=== PATIENT | male | born 1945 | race Caucasian/White ===

== ENCOUNTER 2018-03-22 09:00 | Day surgery (SDC) | payer MEDICARE ==
[~2018-03-22 09:00] MED LIST: Acetaminophen TAB* 325 MG PO PRN; Buffered Lidocaine 0.9% SYRIN* 5 ML/SYR SYRINGE INTRADERM ONE; Cyclopentolate 1% OPTH.SOL* 2 ML BTL ONE; Ketorolac 0.5% OPHTH (NF) 0.5 % 5 ML BTL ONE; Lidocaine 1%* 5 ML VIAL ONE; Lidocaine 2% EPI 1:200000 MPF*10-20 ML VIAL ONE; Midazolam* 1 MG/ML 2 ML VIAL (2 MG) ONE; Neomycin/Polymy/Dex OPTH.SUSP* MAXITROL 0.1% 5 ML ONE; Povidone Iodine 5% OPTH* 30 ML BTL ONE; Proparacaine 0.5% OPHTH.SOL* 15 ML BTL ONE; acetaZOLAMIDE TAB* 250 MG ONE; fentaNYL* 50 MCG/ML 2 ML VIAL (100 MCG VIAL) ONE
[2018-03-22 12:00] VITALS: BP 105/74
--- NOTE | 2018-03-22 19:52 | OP ---
DATE OF OPERATION: 03/22/18 - [facility] DATE OF : 47 SURGEON: Miah Aquino M.D. PREOPERATIVE DIAGNOSIS: Cataract, left eye. POSTOPERATIVE DIAGNOSIS: Cataract, left eye. OPERATIVE PROCEDURE: Extracapsular cataract extraction with intraocular lens implant left eye. DESCRIPTION OF PROCEDURE: The patient was brought to the operating room after being given 1/2% Alcaine with epinephrine drops in the preoperative area. The eye was prepped and draped in the usual sterile fashion. Sterile drape and eyelid speculum were placed. Again, topical 1/2% Alcaine with epinephrine was given. A paracentesis incision was made at the 3 o'clock position with the No. 75 blade. Clear cornea incision 2.2 x 2.2-mm was created at the 6 o'clock position starting at the anterior limbus using the 2.2-mm keratome. The anterior chamber was irrigated with 0.4 mL of 1% non-preservative intracameral lidocaine and filled with DisCoVisc. A capsulorrhexis was completed using the cystotome and the Utrata forceps. Hydrodissection was performed with balanced salt solution. The lens nucleus was removed with the Phacoemulsification handpiece without incident. Cortex was removed with the irrigation-aspiration handpiece. The capsular bag was re-inflated using DisCoVisc and an [id number] implant was inserted with the shooter and oriented to the 176 degree meridian. The irrigation-aspiration handpiece was used to remove all residual DisCoVisc. The eye was refilled with balanced salt solution and the wound checked and found to be watertight. Topical Maxitrol drops were given. [id number]/[facility]PS #: [id number] [facility]
== END 2018-03-22 12:41 | disposition home or self-care (01) ==
LOC: OREAST 09:00
PROVIDERS: ATTEND Specialist
DX: H25.12 Age-related nuclear cataract, left eye (principal); J45.909 Unspecified asthma, uncomplicated
CPT/HCPCS: A9270-GY; J2250; J3010; V2787

== ENCOUNTER 2018-03-29 09:24 | Day surgery (SDC) | payer MEDICARE ==
[~2018-03-29 09:24] MED LIST changes: -Buffered Lidocaine 0.9% SYRIN* 5 ML/SYR SYRINGE INTRADERM ONE; +Buffered Lidocaine 1% SYRIN* 1 ML/SYRINGE INTRADERM ONE; -Cyclopentolate 1% OPTH.SOL* 2 ML BTL ONE; -Ketorolac 0.5% OPHTH (NF) 0.5 % 5 ML BTL ONE; -Lidocaine 1%* 5 ML VIAL ONE; -Lidocaine 2% EPI 1:200000 MPF*10-20 ML VIAL ONE; -Midazolam* 1 MG/ML 2 ML VIAL (2 MG) ONE; -Neomycin/Polymy/Dex OPTH.SUSP* MAXITROL 0.1% 5 ML ONE; -Povidone Iodine 5% OPTH* 30 ML BTL ONE; -Proparacaine 0.5% OPHTH.SOL* 15 ML BTL ONE; -acetaZOLAMIDE TAB* 250 MG ONE; -fentaNYL* 50 MCG/ML 2 ML VIAL (100 MCG VIAL) ONE
[2018-03-29] MEDS ORDERED: Midazolam* 1 MG/ML 5 ML VIAL (5 MG) ONE (10:44)
[2018-03-29] MEDS ORDERED: fentaNYL* 50 MCG/ML 2 ML VIAL (100 MCG VIAL) ONE (11:09)
[2018-03-29 11:52] VITALS: BP 107/54
[2018-03-29] MEDS ORDERED: Neomycin/Polymy/Dex OPTH.SUSP* MAXITROL 0.1% 5 ML ONE (15:43)
[2018-03-29] MEDS ORDERED: Ketorolac 0.5% OPHTH (NF) 0.5 % 5 ML BTL ONE (15:43)
[2018-03-29] MEDS ORDERED: Proparacaine 0.5% OPHTH.SOL* 15 ML BTL ONE (15:43)
[2018-03-29] MEDS ORDERED: Lidocaine 1%* 5 ML VIAL ONE (15:43)
[2018-03-29] MEDS ORDERED: Cyclopentolate 1% OPTH.SOL* 2 ML BTL ONE (15:43)
[2018-03-29] MEDS ORDERED: Povidone Iodine 5% OPTH* 30 ML BTL ONE (15:43)
[2018-03-29] MEDS ORDERED: Lidocaine 2% EPI 1:200000 MPF*10-20 ML VIAL ONE (15:43)
[2018-03-29] MEDS ORDERED: acetaZOLAMIDE TAB* 250 MG ONE (15:43)
[2018-03-29] MEDS ORDERED: Phenylephrine 2.5% OPTH.SOL* 2 ML BTL ONE (15:43)
--- NOTE | 2018-03-29 16:04 | OP ---
OPERATIVE NOTE: DATE OF OPERATION: 03/29/18 DATE OF : 47 SURGEON: Miah Aquino M.D. PREOPERATIVE DIAGNOSIS: Cataract, right eye. POSTOPERATIVE DIAGNOSIS: Cataract, right eye. OPERATIVE PROCEDURE: Extracapsular cataract extraction with intraocular lens implant, right eye. PROCEDURE: The patient was brought to the operating room after being given 1/2% Alcaine with epineph rine drops in the preoperative area. The eye was prepped and draped in the usual sterile fashion. S terile drape and eyelid speculum were placed. Again, topical 1/2% Alcaine with epinephrine was given . A paracentesis incision was made at the 9 o'clock position with the No.75 blade. Clear cornea inc ision 2.2 x 2.2-mm was created at the 12 o'clock position starting at the anterior limbus using the 2 .2-mm keratome. The anterior chamber was irrigated with 0.4 mL of 1% non-preservative intracameral l idocaine and filled with DisCoVisc. A capsulorrhexis was completed using the cystotome and the Utrat a forceps. Hydrodissection was performed with balanced salt solution. The lens nucleus was removed w ith the Phacoemulsification handpiece without incident. Cortex was removed with the irrigation-aspir ation handpiece. The capsular bag was re-inflated using DisCoVisc and an [id number] implant was inser everette with the shooter, oriented to the 19 degree meridian with the horizontal reference watson being ma de in the preoperative area with the patient in seated position. This is all confirmed with ORA. e irrigation-aspiration handpiece was used to remove all residual DisCoVisc. The eye was refilled wi balanced salt solution and the wound checked and found to be watertight. Topical Maxitrol drops w ere given. [id number]/[facility] #: [id number]
== END 2018-03-29 11:55 | disposition home or self-care (01) ==
LOC: OREAST 09:24
PROVIDERS: ATTEND Specialist
DX: H25.11 Age-related nuclear cataract, right eye (principal); J45.909 Unspecified asthma, uncomplicated
CPT/HCPCS: A9270-GY; J2250; J3010; V2787

== ENCOUNTER 2019-05-12 07:38 | Emergency (ER) | payer MEDICARE ==
--- NOTE | 2019-05-12 08:16 | ED ---
Neurological HPI - HPI Summary HPI Summary: This patient is a 73 year old M presenting to [facility] with a chief complaint of brief LOC occurring on 05/11/19. Pt reports yesterday in middle of his workout he became disoriented. One of the other people noticed this and sat pt down on the bench. Then the director of the gym came to sit with him. The director later reported to the pt that he said he did not know where he was and what he was doing. Soon after pt became fully aware and went on with his workout. Pt then felt fine all day, but he called his doctors office and they told him to go to ED. Previously, 3 years ago pt developed tinnitus and slight loss of hearing in both ear but more prevalent in left. Pt sometimes develops OWUSU, and slight loss of balance. Last [place], pt had a very bad cold and was congested for a month after getting better. Patient reports general loss of energy. Patient denies numbness and tingling. Pt denies similar symptoms previously. Pt has PMHx of asthma. Pt visits Dr. Conley, and has had stress tests. Pt does not smoke or drink. Medications reviewed. Allergies noted. - History of Current Complaint Chief Complaint: EDSyncope Stated Complaint: BLACKED OUT PER PT Time Seen by Provider: 05/12/19 07:52 Hx Obtained From: Patient Onset/Duration: Sudden Onset, Started days ago, Resolved Timing: Sudden Onset Current Severity: None Pain Intensity: 0 Pain Scale Used: 0-10 Numeric Character: Confusion Aggravating: Exertion Alleviating: Spontanious Resolution Associated Signs and Symptoms: Positive: Tinnitus, Unsteady Gait, Headache - Additional Pertinent History Primary Care Physician: [id number] - Allergy/Home Medications Allergies/Adverse Reactions: Allergies Allergy/AdvReac Type Severity Reaction Status Date / Time cat dander Allergy Wheezing Verified 05/12/19 07:50 feathers Allergy Wheezing Verified 05/12/19 07:50 dust mites Allergy Wheezing Uncoded 05/12/19 07:50 Home Medications: Home Medications Fluticasone HFA 110 mcg(NF) [Flovent HFA 110 mcg(NF)] 1 puff INH BEDTIME [History Confirmed 05/12/19] Hernandez-3/Dha/Epa/Fish Oil [Fish Oil] 1,000 mg PO QAM 10/23/14 [History Confirmed 05/12/19] Cyanocobalamin TAB* [Vitamin B12 TAB*] 1,000 mcg PO DAILY 05/12/19 [History Confirmed 05/12/19] Pseudoephedrine TAB* [Sudafed TAB*] 30 mg PO DAILY PRN 05/12/19 [History Confirmed 05/12/19] PMH/Surg Hx/FS Hx/Imm Hx Cardiovascular History: Reports: Other Cardiovascular Problems/Disorders - 1 abnormal stress test in 2014 and is now seen by dr. conley yearly Respiratory History: Reports: Hx Asthma - RESCUE INHALER PRESCRIBED, BUT NEVER NEEDED History: Reports: Other Problems/Disorders - pt states occasional UTI Musculoskeletal History: Reports: Hx Arthritis - LEFT HIP, Other Musculoskeletal History - pt had bilateral hip replacements Sensory History: Reports: Hx Cataracts - bilateral eyes, Hx Contacts or Glasses - GLASSES Denies: Hx Hearing Aid Opthamlomology History: Reports: Hx Cataracts - bilateral eyes, Hx Contacts or Glasses - GLASSES Neurological History: Reports: Hx Migraine - EPISODIC- R/T STRESS - Surgical History Surgery Procedure, Year, and Place: bilateral hip replacement 10/2014-left [facility] [place] dr mosley, right 02/27 SOS Hx Anesthesia Reactions: No Infectious Disease History: No Infectious Disease History: Denies: Traveled Outside the [place] in Last 30 Days - Family History Known Family History: Positive: Other - cataract - Social History Alcohol Use: None Substance Use Type: Reports: None Smoking Status (MU): Never Smoked Tobacco Review of Systems Positive: Other - General Loss of Energy Neurological/Mental Status: Other - Loss of Consciousness Negative: Numbness All Other Systems Reviewed And Are Negative: Yes Physical Exam - Summary Physical Exam Summary: Constitutional: Well-developed, Well-nourished, Alert. (-) Distressed Skin: Warm, Dry HENT: Normocephalic; Atraumatic Eyes: Conjunctiva normal Neck: Musculoskeletal ROM normal neck. (-) JVD, (-) Stridor, (-) Tracheal deviation Cardio: Rhythm regular, rate normal, Heart sounds normal; Intact distal pulses; Radial pulses are 2+ and symmetric. (-) Murmur Pulmonary/Chest wall: Effort normal. (-) Respiratory distress, (-) Wheezes, (-) Rales Abd: Soft, (-) tenderness, (-) Distension, (-) Guarding, (-) Rebound Musculoskeletal: (-) Edema Lymph: (-) Cervical adenopathy Neuro: Alert, Oriented x3, Strength normal, Cranial nerves II-XII are grossly intact. (-) Dysmetria, (-) Nystagmus, (-) Ataxia by finger to nose testing, (-) Sensory deficit. Nml gait Psych: Mood and affect Normal Triage Information Reviewed: Yes Vital Signs On Initial Exam: Initial Vitals Temp Pulse Resp BP Pulse Ox 98.8 F 82 19 149/89 96 05/12/19 07:42 05/12/19 07:42 05/12/19 07:42 05/12/19 07:42 05/12/19 07:42 Vital Signs Reviewed: Yes - Chris Coma Scale Best Eye Response: 4 - Spontaneous Best Motor Response: 6 - Obeys Commands Best Verbal Response: 5 - Oriented Coma Scale Total: 15 Procedures - Sedation Patient Received Moderate/Deep Sedation with Procedure: No Diagnostics - Vital Signs Vital Signs Temp Pulse Resp BP Pulse Ox 05/12/19 07:42 98.8 F 82 19 149/89 96 - Laboratory Result Diagrams: 05/12/19 08:22 05/12/19 08:22 Lab Statement: Any lab studies that have been ordered have been reviewed, and results considered in the medical decision making process. - Radiology 0846 Radiology Interpretation Completed By: ED Physician Summary of Radiographic Findings: EKG at 0846 reveals normal sinus rhythm with rate of 67 BPM Benign early repol. This EKG was reviewed and interpreted by ED physician. - CT Head CTA CT Interpretation Completed By: Radiologist Summary of CT Findings: Head CTA reveals, per radiologist IMPRESSION: 1. According to NASCET criteria there is no significant carotid stenosis bilaterally. There is no significant atherosclerotic plaque seen in either carotid bulb. 2. Arteries of the head and neck are adequately patent without CT apparent acute. abnormality. 3. 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 Please correlate to any signs or symptoms of left upper extremity. venous hypertension including swelling or pain. Potentially during moments of physical. exertion (for example, the gym) the patient is experiencing increase intracranial venous pressure contributing to his symptoms? ED physician has reviewed this radiology report. - EKG 0846 Cardiac Rate: NL EKG Rhythm: Sinus Rhythm Summary of EKG Findings: EKG at 0846 reveals normal sinus rhythm with rate of 67 BPM Benign early repol. This EKG was reviewed and interpreted by ED physician. NIH Scale - NIH Scale Level of Consciousness: Alert/Keenly Responsive Ask Patient the Month and His/Her Age: Both Correct Ask Pt to Open/Close Eyes and Weight Clerk/Release Non-Paretic Hand: Both Correctly Best Gaze (Only Horizontal Eye Movement): Normal Visual Field Testing: No Visual Loss Facial Paresis-Pt to Smile & Close Eyes or Grimace Symmetry: Normal/Symmetrical Motor Function - Right Arm: No Drift-Holds 10 Seconds Motor Function - Left Arm: No Drift-Holds 10 Seconds Motor Function - Right Leg: No Drift-Holds 10 Seconds Motor Function - Left Leg: No Drift-Holds 10 Seconds Limb Ataxia-Must be out of Proportion to Weakness Present: Absent Sensory (Use Pinprick to Test Arms/Legs/Trunk/Face): Normal Best Language (Describe Picture, Name Items): No Aphasia Dysarthria (Read Several Words): Normal Extinction and Inattention: No Abnormality Total Score: 0 Re-Evaluation - Re-Evaluation First Eval Re-Evaluation Time: 10:47 Comment: Discussed results and plan of care with pt. Course/Dx - Course Course Of Treatment: Patient is here with an episode of exertional disorientation. Patient cannot recall the events of this episode. Patient has a normal neurologic exam here with an NIH stroke scale of 0. Patient is back to his baseline. Patient had a CTA of his head/neck which was negative for any acute changes. 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 Patient in EKG showed evidence of arrhythmia. Patient had negative blood work. Neurology was called and they do not think this represents a TIA. Patient follow-up with his primary care doctor for further evaluation and possible Holter monitor. - Diagnoses Provider Diagnoses: Disorientation, Adverse effect of exertion - Physician Notifications Discussed Care Of Patient With: Parish Pelaez Time Discussed With Above Provider: 10:41 Instructed by Provider To: Other - 10:[address] Pelaez, does not sound like TIA, follow up with PCP, possible holter monitor Discharge ED - Sign-Out/Discharge Documenting (check all that apply): Patient Departure - Discharge - Discharge Plan Condition: Stable Disposition: HOME Referrals: Juana Gimenez MD [Primary Care Provider] - 3 Days Additional Instructions: Follow up with primary care provider in 1-3 days for possible holter moniter, or referral to neurology. Return to ED for chest pain, one sided weakness, change in vision, or any other concerning symptoms. - Billing Disposition and Condition Condition: STABLE Disposition: Home - Attestation Statements Document Initiated by Ghulam: Yes Documenting Scribe: Kalie Grijalva Provider For Whom Ghulam is Documenting (Include Credential): Conrad Amaro MD Scribe Attestation: Kalie Bach, scribed for Conrad Amaro MD on 05/12/19 at 1227. Scribe Documentation Reviewed: Yes Provider Attestation: The documentation as recorded by the Kalie hemphill accurately reflects the service I personally performed and the decisions made by , Conrad Amaro MD Status of Scribe Document: Viewed
[2019-05-12 08:31] LABS: ABS Eosinophils 0.1 10^3/ul (0-0.6); ABS Lymphocytes 0.9 10^3/ul (1.0-4.8); ABS Monocytes 0.4 10^3/ul (0-0.8); ABS Neutrophils 2.4 10^3/ul (1.5-7.7); Eosinophil % 2.2 %; Hematocrit 42 % (42-52); Lymphocyte % 22.7 %; Mean Corpuscular HGB Conc 34 g/dL (31-36); Mean Corpuscular Hemoglobin 32 pg (27-31); Mean Corpuscular Volume 94 fL (80-94); Mean Platelet Volume 8.8 fL (7.4-10.4); Platelet Count 168 10^3/uL (150-450); Red Blood Count 4.43 10^6 /uL (4.18-5.48); Red Cell Distribution Width 15 % (10-15); White Blood Count 3.9 10^3/uL (3.5-10.8)
[2019-05-12 09:05] LABS: Albumin/Globulin Ratio 1.7 (1-3); BUN/Creatinine Ratio 14.2 (8-20); Calcium 9.4 mg/dL (8.6-10.3); EGFR African American 83.1 (>60); EGFR Non-African American 68.7 (>60); Globulin 2.3 g/dL (2-4); Potassium 4.5 mmol/L (3.5-5.0); Total Protein 6.3 g/dL (6.4-8.9)
--- OUTSIDE RECORDS SUMMARY | 2019-05-12 09:07 | XMS REPORT | Continuity of Care Document ---
:1945 External Reference #:[id number] Author Name Juana Gimenez MD (transmitted by agent of provider Albina Bello) Address [address] , [place] [address] Care Team Providers Name Role Phone Jordin Gastelum MD - Internal Care Team Information Taper/Finisher Medicine Anson Chavis MD - Urology Care Team Information Taper/Finisher [phone] Svitlana Pulido NP - Adult Health Care Team Information Taper/Finisher [phone] Ortega Conley MD - Cardiovascular Care Team Information Taper/Finisher Disease Juana Gimenez MD - Internal Medicine Care Team Information Taper/Finisher Problems Active Problems Provider Date Intrinsic asthma without status Jordin Gastelum M.D.,FACP Onset: 2007 asthmaticus Migraine with typical aura Jordin Gastelum M.D.,FACP Onset: 05/31/2007 Localized, primary osteoarthritis of Jordin Gastelum M.D.,FACP Onset: the pelvic region and thigh Note: left hip History of calculus of kidney Jordin Gastelum M.D.,FACP Onset: 03/10/2016 Spermatocele Jordin Gastelum M.D.,FACP Onset: 11/02/2016 Note: LT, large Paroxysmal ventricular tachycardia Jordin Gastelum M.D.,FACP Onset: 2016 Note: outflow tract, negative cath, cardiac MRI Benign prostatic hypertrophy without Jordin Gastelum M.D.,FACP Onset: outflow obstruction Essential tremor Jordin Gastelum M.D.,FACP Onset: 02/09/2018 Note: RT thumb Social History Type Date Description Comments Sex Unknown Tobacco Use Start: Unknown Never Smoked Cigarettes ETOH Use 02/09/2018 Rarely consumes beer Recreational Drug Use Denies Drug Use Tobacco Use Start: Unknown Patient has never smoked Smoking Status Reviewed: 04/18/19 Patient has never smoked Exercise Type/Frequency Exercises regularly Allergies, Adverse Reactions, Alerts Active Allergies Reaction Severity Comments Date Cat Dander 12/30/2011 Feathers 12/30/2011 Dust 12/30/2011 Inactive Allergies NKDA 01/05/2011 Medications Active Medications SIG Qnty Indications Ordering Provider Date Shingrix inject per 2units Z23 Juana Gimenez MD 02/20/2019 50mcg/0.5ML protocol Suspension Rec Vitamin B12 1 by mouth every 90tabs Jordin Ahuja 02/25/2018 100mcg day Naomi Gastelum,FACP Tablets Amoxicillin 4 tablets 1 hour 8caps Emanuel Martin, 05/02/2015 500mg before dental work Naomi Capsules Proair HFA 2 puffs by mouth 1units 493.10 Juana Gimenez MD 10/09/2014 every 4 hours as 108(90Base) mcg/Act needed Aerosol Flovent HFA inhale one puff by 36gm Jordin Ahuja 03/15/2007 mouth every Naomi Gastelum,FACP 110mcg/Act Aerosol evening Fish Oil daily Unknown Excedrin Migraine 1 tablet by mouth Unknown three times a day, [phone] Tablets as needed persitent headache Immunizations CPT Code Status Date Vaccine Lot # [id number] Given 02/09/2018 Influenza Virus Vaccine, Quadrivalent, Split, [id number] Preservative Free 73773 Given 02/14/2017 Influenza Virus Vaccine, Quadrivalent, Split, Preservative Free 81083 Given 02/03/2017 Influenza Virus Vaccine, Quadrivalent, Split, Preservative Free 46327 Given 10/28/2015 Pneumonia Vaccine [id number] Given 10/09/2014 Pneumococcal Conjugate Vaccine 13 Valent For [id number] Intramuscular Use Q2037 Given 12/30/2011 Fluvirin Im 3Yrs And Older [id number] 59097 Given 12/30/2011 Tdap - Tetanus/Diptheria/Acellular Pertussis [id number] 67012 Given 03/15/2007 Influenza Virus 3Yrs & Over [id number] Vital Signs Date Vital Result Comment 04/18/2019 8:42am Height 67 inches 5'7" Weight 137.00 lb Heart Rate 58 /min BP Systolic Sitting 120 mmHg BP Diastolic Sitting 68 mmHg Body Temperature 97.4 F O2 % BldC Oximetry 96 % BMI (Body Mass Index) 21.5 kg/m2 02/20/2019 8:47am Height 67 inches 5'7" Weight 135.00 lb Heart Rate 66 /min BP Systolic Sitting 131 mmHg BP Diastolic Sitting 69 mmHg Body Temperature 97.3 F O2 % BldC Oximetry 99 % BMI (Body Mass Index) 21.1 kg/m2 Results Test Acquired Date Facility Test Result H/L Range Note CBC Auto 02/20/2019 [facility] White Blood 4.9 10^3/uL Normal 3.5-10.[address] Count [place], [place] [id number] [phone] Red Blood Count 4.44 10^6/uL Normal 4.18-5.48 Hemoglobin 14.0 g/dL Normal 14.0-18.0 Hematocrit 42 % Normal 42-52 Mean Corpuscular Volume 94 fL Normal 80-94 Mean Corpuscular Hemoglobin 32 pg High 27-31 Mean Corpuscular HGB Conc 33 g/dL Normal 31-36 Red Cell Distribution Width 14 % Normal 10-15 Platelet Count 193 10^3/uL Normal 150-450 Mean Platelet Volume 9.4 fL Normal 7.4-10.4 Abs Neutrophils 3.2 10^3/uL Normal 1.5-7.7 Abs Lymphocytes 1.0 10^3/uL Normal 1.0-4.8 Abs Monocytes 0.6 10^3/uL Normal 0-0.8 Abs Eosinophils 0.2 10^3/uL Normal 0-0.6 Abs Basophils 0.1 10^3/uL Normal 0-0.2 Abs Nucleated RBC 0.0 10^3/uL Granulocyte % 64.3 % Lymphocyte % 19.9 % Monocyte % 11.5 % Eosinophil % 3.1 % Basophil % 1.2 % Nucleated Red Blood Cells % 0.0 Laboratory test 02/20/2019 [facility] C Reactive < 1.00 Normal <8.[address] Protein mg/[place] [address] [phone] TSH (Thyroid Stim Horm) 1.61 mcIU/mL Normal 0.34-5.60 Vitamin B12 02/20/2019 [facility] Vitamin B12 376 pg/mL Normal 180-914 [address] [place] [address] [phone] Folic Acid (Folate) 8.13 ng/mL >3.99 Lipid Profile 02/15/2019 [facility] Triglycerides 64 mg/dL 2 (Trig/Chol/HDL) [address] [place] [address] [phone] Cholesterol 179 mg/dL 3 HDL Cholesterol 69.1 mg/dL 4 LDL Cholesterol 97 mg/dL 5 Comp Metabolic 02/15/2019 [facility] Sodium 142 mmol/L Normal 135-[address] [place] [address] [phone] Potassium 4.2 mmol/L Normal 3.5-5.0 Chloride 108 mmol/L Normal 101-111 Co2 Carbon Dioxide 30 mmol/L Normal 22-32 Anion Gap 4 mmol/L Normal 2-11 Glucose 96 mg/dL Normal 70-100 Blood Urea Nitrogen 18 mg/dL Normal 6-24 Creatinine 1.02 mg/dL Normal 0.67-1.17 BUN/Creatinine Ratio 17.6 Normal 8-20 Calcium 9.1 mg/dL Normal 8.6-10.3 Total Protein 5.9 g/dL Low 6.4-8.9 Albumin 4.1 g/dL Normal 3.2-5.2 Globulin 1.8 g/dL Low 2-4 Albumin/Globulin Ratio 2.3 Normal 1-3 Total Bilirubin 1.10 mg/dL High 0.2-1.0 Alkaline Phosphatase 83 U/L Normal 34-104 Alt 15 U/L Normal 7-52 Ast 20 U/L Normal 13-39 Egfr Non- 71.8 >60 Egfr 86.9 >60 6 Laboratory test 10/30/2018 [facility] PSA Diagnostic 1.596 ng/ mL 0-4.0 [address] [place] [address] [phone] 1 Normal Range 180 to 914 Indeterminate Range 145 to 180 Deficient Range <145 2 Desirable: <150 Borderline High: 150-199 High: 200-499 Very High: >500 3 Desirable: <200 Borderline High: 200-239 High: >239 4 Low: <40 Desirable: 40-60 High: >60 5 Desirable: <100 Near Optimal: 100-129 Borderline High: 130-159 High: 160-189 Very High: >189 6 Because ethnic data is not always readily available, this report includes an eGFR for both -Americans and non- Americans. The National Kidney Disease Education Program (NKDEP) does not endorse the use of the MDRD equation for patients that are not between the ages of 18 and 70, are , have extremes of body size, muscle mass, or nutritional status, or are non- or non-. According to the National Kidney Foundation, irrespective of diagnosis, the stage of the disease is based on the level of kidney function: Stage Description GFR(mL/min/1.73 m(2)) 1 Kidney damage with normal or decreased GFR 90 2 Kidney damage with mild decrease in GFR 60-89 3 Moderate decrease in GFR 30-59 4 Severe decrease in GFR 15-29 5 Kidney failure <15 (or dialysis) 7 Serum levels of PSA measured using the [employer] [place] DXI Hybritech immunoassay should not be interpreted as absolute evidence of the presence or absence of disease. The PSA value should be used in conjunction with other pertinent clinical diagnostic procedures. The values obtained with different assay methods or kits cannot be used interchangeably. Procedures Date Code Description Status 03/23/2019 25574 ECHO Stress Test Incl Perf Contiuous ekg Monitoring Completed W/Phys Superv 02/07/2019 23822 EKG Tracing & Interpretation Completed 03/03/2012 88083228 Colonoscopy Completed 03/14/2000 28526086 Colonoscopy Completed Medical Devices Description No Information Available Encounters Type Date Location Provider Dx Diagnosis Office Visit 02/07/2019 [facility] Ortega Ahuja I47.2 Ventricular 8:45a Of Leigh Ann Conley M.D. tachycardia R42 Dizziness and giddiness Office Visit 12/12/2018 8:30a [facility] M25.562 Pain in at [facility] Kevin MD left knee M17.12 Unilateral primary osteoarthritis, left knee Office Visit 10/31/2018 8:00a [facility] M25.562 Pain in at Macrina Kevin MD left knee M17.12 Unilateral primary osteoarthritis, left knee Assessments Date Code Description Provider 04/18/2019 H93.13 Tinnitus, bilateral Juana Gimenez MD 03/23/2019 I47.2 Ventricular tachycardia Ortega Conley M.D. 02/20/2019 Z00.00 Encounter for general adult medical Juana Gimenez MD examination without abnormal findings 02/20/2019 R63.4 Abnormal weight loss Juana Gimenez MD 02/20/2019 Z23 Encounter for immunization Juana Gimenez MD 02/20/2019 R25.1 Tremor, unspecified Juana Gimenez MD 02/20/2019 F34.1 Dysthymic disorder Juana Gimenez MD 02/07/2019 I47.2 Ventricular tachycardia Ortega Conley M.D. 02/07/2019 R42 Dizziness and giddiness Ortega Conley M.D. 12/12/2018 M25.562 Pain in left knee Daimen Kevin MD 12/12/2018 M17.12 Unilateral primary osteoarthritis, left Damien Kevin MD knee 10/31/2018 M25.562 Pain in left knee Damien Kevin MD 10/31/2018 M17.12 Unilateral primary osteoarthritis, left Damien Kevin MD knee Plan of Treatment Future Appointment(s):05/22/2019 8:20 am - [facility] Juana Gimenez MDH93.13 Tinnitus, bilateralReferral: Barry Moreno MD, Otolaryngology Functional Status Description No Information Available Mental Status Description No Information Available Referrals Refer to Dr Reason for Referral Status Appt Date Barry Moreno MD Sudden on set bilateral tinnitus about a week Created ago No cerumen bilaterally [address] [place] [address] [phone]
[2019-05-12] MEDS ORDERED: Iohexol 350* (CONTRAST) 500 ML MDV IV ONE (09:14)
[2019-05-12 11:06] VITALS: BP 120/74
== END 2019-05-12 11:06 | disposition home or self-care (01) ==
LOC: ED 07:38
DX: T73.3XXA Exhaustion due to excessive exertion, initial encounter (principal); R41.0 Disorientation, unspecified; R55 Syncope and collapse; X58.XXXA Exposure to other specified factors, initial encounter; Z79.899 Other long term (current) drug therapy
CPT/HCPCS: 36415; 70496; 70498; 80053; 84484; 85025; 93005; 99282; Q9967